=== PATIENT | female | born 1950 | race Caucasian/White ===

== ENCOUNTER → 2020-03-08 | Outpatient (CLI) | payer MEDICARE, BC ==
[2015-07-05 20:00] VITALS: BP 121/53
[~2020-03-08] MED LIST: ACET500T68 PO; DOCU-109 PO; IBUP200T58 PO; Oxycodone Hcl/Acetaminophen PO
--- NOTE | 2020-03-08 15:46 | RAD ---
Whole-body bone scan Clinical indications: Sclerotic lesions on pelvic x-ray. Patient fell 3 weeks ago. TECHNIQUE: After IV infusion of 25.1 mCi of technetium 99m MDP, delayed anterior and posterior planar images of the whole body and right and left lateral images of the pelvis were performed. COMPARISON: None available. FINDINGS: There is linear radiotracer activity involving the anterior aspect of the left lower rib cage consistent with rib fractures. There is activity seen involving the right AC joint which may be due to osteoarthritis or trauma. There is degenerative activity seen involving the cervical and thoracic and lumbar spine and both knees and both hindfeet. There is no pattern of uptake to indicate osseous metastatic disease. Specifically, there is no abnormal uptake involving the pelvic bones. There is abnormal uptake involving the left side of the mandible. This may be due to dental disease. IMPRESSION: No osseous metastatic disease is seen scintigraphically. Specifically, no abnormality of the pelvic bones. Left anterior rib cage fractures. Significant AC joint activity on the right side which may be due to osteoarthritis or could be posttraumatic. Abnormal uptake is seen involving the lower left side of the mandible. This may be related to dental disease. Clinical correlation of this area is recommended. Degenerative activity as discussed elsewhere. Electronically signed by: Cornelio Leone MD (03/08/2020 3:43 PM) [id number]
--- NOTE | 2020-03-10 11:55 | RAD ---
DATE: 03/08/2020 EXAM: DIGITAL SCREEN BILAT W/CAD HISTORY: Screening COMPARISON: None. Baseline exam This study was interpreted with the benefit of Computerized Aided Detection (CAD). Breast Density: HETERO The breast parenchyma is heterogenously dense, which could reduce sensitivity of mammography. Breast parenchyma level C. FINDINGS: There is a 2.5 cm circumscribed ovoid mass in the central right breast 6.5 cm posterior to the nipple. Additional 2 cm ovoid circumscribed mass in the right breast 2:00, 3.5 cm posterior to the nipple. There is a 2.3 cm ovoid mass in the upper right breast seen on MLO tomosynthesis, without definite correlation on CC view. This is likely at approximately 10:00. No definite mass in the left breast. No suspicious calcifications or architectural distortions. IMPRESSION: Multiple circumscribed masses in the right breast, likely cysts. Recommend ultrasound to confirm. BI-RADS CATEGORY: 0 INCOMPLETE: NEEDS ADDITIONAL IMAGING EVALUATION AND/OR PRIOR MAMMOGRAMS FOR COMPARISON. RECOMMENDED FOLLOW-UP: ADD ADDITIONAL IMAGING PQRS compliance statement: Mammography is a sensitive method for finding small breast cancers, but it does not detect them all and is not a substitute for careful clinical examination. A negative mammogram does not negate a clinically suspicious finding and should not result in delay in biopsying a clinically suspicious abnormality. "Our facility is accredited by the [employer] Mammography Program."
== END ==
LOC: NM 07:35
PROVIDERS: ATTEND Specialist
DX: Z12.31 Encounter for screening mammogram for malignant neoplasm of breast (principal); N64.89 Other specified disorders of breast; M47.815 Spondylosis without myelopathy or radiculopathy, thoracolumbar region; M17.0 Bilateral primary osteoarthritis of knee; M19.072 Primary osteoarthritis, left ankle and foot; M19.071 Primary osteoarthritis, right ankle and foot; M89.9 Disorder of bone, unspecified
CPT/HCPCS: 77067; 78306; A9503

== ENCOUNTER → 2020-03-17 | Outpatient (CLI) | payer MEDICARE, BC ==
[2015-07-05 20:00] VITALS: BP 121/53
--- NOTE | 2020-03-17 17:54 | RAD ---
Examination: BREAST RIGHT History: Reason: ABNORMAL MAMMOGRAM CALLBACK / Spl. Instructions: / History: Comparison/Correlation: 03/08/2020, 11/19/2014 screening mammographic exams Findings: Limited right breast ultrasound exam was performed. At the 10:00 region 10 cm from the nipple, there is a hypoechoic microlobulated mass measuring 1.5 cm x 0.8 cm x 0.7 cm. This corresponds to the finding on MLO tomographic images of 03/08/2020. This does not have a finding on the standard MLO image. At the 12:00 region 4 cm from the nipple, there is a 1.6 x 1 cm x 1.8 cm hypoechoic mass. It is smoothly marginated. This corresponds with the mammographic exams. At the 12:00 to 1:00 region 5 cm from nipple, there is a 1.1 cm x 1 cm x 0.8 cm mass. This mass is irregularly marginated. It corresponds with the mammographic finding of 03/08/2020. This may have a corresponding finding on previous mammographic exam of 11/19/2014. . Right axilla is unremarkable. Impression: BI-RADS Category 4-suspicious for malignancy. Ultrasound-guided biopsy of the 10:00 mass in the 12:00 to 1:00 region 1.1 cm diameter mass is recommended. No Electronically signed by: Jr Triana MD (03/17/2020 5:51 PM) [id number]
== END ==
LOC: US 12:08
PROVIDERS: ATTEND Specialist
DX: N63.12 Unspecified lump in the right breast, upper inner quadrant (principal); R92.2 Inconclusive mammogram
CPT/HCPCS: 76641

== ENCOUNTER → 2020-03-31 | Outpatient (CLI) | payer MEDICARE, BC ==
[2015-07-05 20:00] VITALS: BP 121/53
--- NOTE | 2020-03-31 17:21 | RAD ---
Examination: 1. Ultrasound-guided right breast core needle biopsy of 2 sites. 2. Right digital postprocedure mammogram. INDICATION: 70-year-old woman with abnormal mammographic findings recommended for ultrasound-guided core needle biopsy. COMPARISON: Bilateral mammogram of March 08, 2020 and right breast ultrasound of that same day. TECHNIQUE AND FINDINGS: Informed consent was obtained and an appropriate procedural pause observed. Using standard sterile technique, ultrasound guidance and local anesthesia, the initial lesion at the 12:30 o'clock position 5 cm from the nipple was targeted for biopsy and multiple 14-gauge core biopsy samples were obtained. As it was very close to the third lesion at the 12:00 position 4 cm from the nipple, it is possible part of this additional lesion was also sampled during targeted biopsy of the lesion at the 12:30 o'clock position 5 cm from nipple which was recommended for biopsy. An S-shaped biopsy marker was deployed in the 12:30 o'clock position lesion and hemostasis ensured with direct breast compression for 10 minutes. Thereafter, attention was turned to the right 10:00 position where the 1.1 cm oval mass 10 cm from the nipple was identified and targeted for biopsy with multiple 14-gauge core biopsy samples. An open padlock biopsy marker was deployed at this lesion following satisfactory tissue sampling. Tissue samples from the 2 biopsy sites were placed separately in formalin and sent for histologic analysis. Puncture sites were dressed and post procedure instructions reviewed. Digital right post procedure mammogram showed satisfactory deployment of the biopsy markers in the areas of targeted interest. The breast parenchyma is extremely dense which limits mammographic sensitivity. No post biopsy hematoma was apparent. IMPRESSION: Successful right breast ultrasound-guided core needle biopsy of 2 sites in the upper outer quadrant and in the upper inner quadrant. Pathology results are pending. An addendum will be issued once pathology results become available. Electronically signed by: Rosalio Allred MD (03/31/2020 5:18 PM) [id number]
--- NOTE | 2020-04-05 16:06 | PATHOLOGY ---
[facility] Accession Number: [id number] . 01 Material submitted: . PART A: breast - RIGHT BREAST TISSUE, 12:30, 5CMFN. Modifiers: right, 12:00 PART B: breast - RIGHT BREAST TISSUE, 10:00, 10CMFN. Modifiers: right, 10:00 . 02 Diagnosis: A. Breast tissue, right breast mass 12:30 needle biopsies: - Confluent dense stromal fibrosis. . B. Breast tissue, right breast mass 10:00 needle biopsies: - Confluent dense stromal fibrosis. (JPM:dari; 04/05/2020) S 04/05/2020 0953 Local . 02 Comment: Sections of the right breast mass at 12:30 and right breast mass at 10:00 needle biopsies appear similar and show confluent dense stromal fibrosis. There are a few ducts coarsing through the dense fibrous tissue. There is no atypia or evidence of malignancy. (JPM:dari; 04/05/2020) . 02 Electronically signed: . Tripp Morataya MD, Pathologist NPI- [id number] . 01 Gross description: . A. The specimen is received in formalin, labeled "Mayte Dumont, right breast 1230 5cmFN" and consists of 6 needle cores of white-pink to yellow tissue measuring between 0.4 cm and 1.7 cm in length and 0.2 cm each in diameter which are entirely submitted in A1-A3. The specimen was obtained at 2:40 PM on 03/31/2020 and placed in formalin at 2:42 PM. The cold ischemic time is 2 minutes and the total formalin fixation time is greater than 6 hours less than 72 hours. . B. The specimen is received in formalin, labeled "Long, Mayte, right breast 10:00 10 cm FN" and consists of 4 needle cores of white-pink to yellow tissue measuring between 0.7 cm and 1.4 cm in length and 0.2 cm each in diameter which are entirely submitted in B1-B3. The specimen was obtained at 2:55 PM on 03/31/2020 and placed in formalin at 2:57 PM. The cold ischemic time is 2 minutes and the total formalin fixation time is greater than 6 hours less than 72 hours. (SDY; 04/02/2020) SYU/SYU 04/02/2020 1236 Local . 02 Pathologist provided ICD-10: N60.31 . 02 CPT . 367395, [id number] Specimen Comment: A courtesy copy of this report has been sent to [phone], [phone] Specimen Comment: [id number] Specimen Comment: Report sent to / DR GOLD Performed at: 01 [facility] [address] [address], [place] [id number] MD Crispin Parra MD Phone: [phone] Performed at: 02 [facility] [address] [place], [place] [id number] MD Tripp Morataya MD Phone: [phone]
== END | disposition home or self-care (01) ==
LOC: US 10:42
PROVIDERS: ATTEND Physician Assistant
DX: N63.11 Unspecified lump in the right breast, upper outer quadrant (principal); N63.12 Unspecified lump in the right breast, upper inner quadrant; Z98.51 Tubal ligation status; Z98.890 Other specified postprocedural states; Z79.899 Other long term (current) drug therapy; Z88.0 Allergy status to penicillin; Z88.2 Allergy status to sulfonamides; Z88.8 Allergy status to other drugs, medicaments and biological substances
CPT/HCPCS: 19083; 19084; 77065; 88305; C1713; 19081; 76942